=== PATIENT | female | born 1995 | race Two or more races ===

== ENCOUNTER 2021-11-29 07:54 | Outpatient (CLI) | payer OTHER | END 2021-11-29 09:15 | disposition home or self-care (01) | LOC: PRENATAL 07:54 | PROVIDERS: ATTEND Obstetrics & Gynecology Maternal & Fetal Medicine | DX: O36.80X0 Pregnancy with inconclusive fetal viability, not applicable or unspecified (principal); Z36 Encounter for antenatal screening of mother; Z3A.13 13 weeks gestation of pregnancy ==

== ENCOUNTER 2022-01-20 07:53 | Outpatient (CLI) | payer OTHER | END 2022-01-20 09:15 | disposition home or self-care (01) | LOC: PRENATAL 07:53 | PROVIDERS: ATTEND Obstetrics & Gynecology Maternal & Fetal Medicine | DX: O35.9XX0 Maternal care for (suspected) fetal abnormality and damage, unspecified, not applicable or unspecified (principal); O35.3XX0 Maternal care for (suspected) damage to fetus from viral disease in mother, not applicable or unspecified; Z3A.20 20 weeks gestation of pregnancy ==

== ENCOUNTER 2022-04-14 08:13 | Outpatient (CLI) | payer OTHER | END 2022-04-14 08:45 | disposition home or self-care (01) | LOC: PRENATAL 08:13 | PROVIDERS: ATTEND Obstetrics & Gynecology Maternal & Fetal Medicine | DX: O26.849 Uterine size-date discrepancy, unspecified trimester (principal); O36.8199 Decreased fetal movements, unspecified trimester, other fetus; Z3A.32 32 weeks gestation of pregnancy ==

== ENCOUNTER 2022-05-25 09:13 | Inpatient (IN) | payer OTHER ==
[~2022-05-25] VITALS: Ht 172.7 cm; Wt 71.7 kg
[2022-05-30] MEDS ORDERED: PRENATAL TABLE1 EAC1 PO (08:29)
[2022-05-30] MEDS ORDERED: PRENA1 CHEW TA1.4 MG PO (08:45)
== END 2022-06-01 15:55 | disposition home or self-care (01) | DRG 807 ==
LOC: LDR 05-30 07:27 → OB/GYN 05-30 13:30
PROVIDERS: ADMIT Student in an Organized Health Care Education/Training Program; ATTEND Student in an Organized Health Care Education/Training Program
PROC: 10E0XZZ Delivery of Products of Conception, External Approach (ICD-10-PCS; principal; 2022-05-30)
PROC: 0UQMXZZ Repair Vulva, External Approach (ICD-10-PCS; 2022-05-30)
PROC: 4A1HXCZ Monitoring of Products of Conception, Cardiac Rate, External Approach (ICD-10-PCS; 2022-05-30)
PROC: 3E033VJ Introduction of Other Hormone into Peripheral Vein, Percutaneous Approach (ICD-10-PCS; 2022-05-30)
DX: O70.0 First degree perineal laceration during delivery (principal); Z37.0 Single live birth; O99.824 Streptococcus B carrier state complicating childbirth; Z3A.39 39 weeks gestation of pregnancy